=== PATIENT | male | born 1950 | race Caucasian/White ===

== ENCOUNTER 2018-04-29 03:38 | Inpatient (IN) | payer OTHER, MEDICARE ==
[~2018-04-29] VITALS: Ht 162.6 cm; Wt 76.2 kg
[~2018-04-29 03:38] MED LIST: METOPROLOL TART25 M1 PO; ST. JOSEPH ASPI81 MG PO
--- NOTE | 2018-04-29 09:58 | Admission Core Measures ---
Acute Coronary Syndrome (CM) ACS Core Measures Acute Coronary Syndrome Diagnosis No Congestive Heart Failure (NEW) CHF Core Measures Congestive Heart Failure Diagnosis No Cerebrovascular Accident CVA Core Measures CVA/TIA Diagnosis No Venous Thromboembolism VTE Core Jessica (View Protocol) VTE Risk Factors Surgery No Mechanical VTE Prophylaxis d/t N/A MechProphylax Ordered No VTE Pharm Prophylaxis d/t NA PharmProphylax ordered Problem List As ranked by this Provider includes Assessment & Plan 1. Unilateral primary osteoarthritis, left hip HOME MEDS Home Med List Aspirin ([place] Aspirin) 81 MG TAB.CHEW 1 TAB PO DAILY HEARTHEALTH ( Reported) Metoprolol Tartrate 25 MG TABLET 1 TAB PO DAILY ARRYTHMIA (Reported)
[2018-04-29] MEDS ORDERED: DILAUDID2 M1 PO (10:00)
[2018-04-29] MEDS ORDERED: INDOMETHACIN25 M1 PO (10:00)
[2018-04-29] MEDS ORDERED: MIRALAX17 G1 PO (10:00)
[2018-04-29] MEDS ORDERED: ASPIRIN EC81 M1 PO (10:00)
[2018-04-29] MEDS ORDERED: PRILOSEC OTC20 M1 PO (10:00)
[2018-04-29] MEDS ORDERED: COLACE100 M1 PO (10:00)
--- NOTE | 2018-04-29 10:02 | Patient Discharge Instructions ---
Discharge Instructions General Discharge Information You were seen/treated for: Left hip pain related to unilateral primary osteoarthritis You had these procedures: Left total hip replacement Watch for these problems: Increasing pain despite the use of pain medication Increasing redness, warmth or swelling Drainage of any type from incision Inability to bear weight on operative leg Persistent nausea and vomiting Fever greater than 101.5 degrees Do not soak the wound: Yes No bath, but you may shower: Yes Other wound care: Please keep wound clean and dry. No ointments or lotions of any type on or near incision at any time. No exceptions. Your dressing will be changed by your nurse on the second day after your surgery. Daily dry dressing changes are recommended each day thereafter. Do not soak your wound in a bath or pool at any time until otherwise indicated by your surgeon. You may shower, please dry wound immediately after shower with a clean towel. Special Instructions: Aspirin: You are taking this medication to help prevent blood clot formation. Please take with food to protect your stomach lining. Please take as directed. Constipation: Pain medication can cause constipation. Your surgeon has recommended that you take Colace and miralax each day. You may discontinue this medication if you develop loose stool or diarrhea. If you wish to continue this medication, it is available over the counter. If you are unable to move your bowels after several days, if you are unable to pass gas and are developing bloating, nausea, or vomiting as a result, please contact your doctor. Diet Continue normal diet: Yes Recommended Diet: Regular Activity Full Activity/No Limits: No Activity Self Limited: Yes Pounds, do NOT lift more than: 10 Acute Coronary Syndrome Inclusion Criteria At DC or during hospital stay patient has or had the following: ACS DIAGNOSIS No Discharge Core Measures Meds if any: Prescribed or Continued at Discharge Meds if any: NOT Prescribed or Continued at Discharge Congestive Heart Failure Inclusion Criteria At DC or during hospital stay patient has or had the following: CHF DIAGNOSIS No Discharge Core Measures Meds if any: Prescribed or Continued at Discharge Meds if any: NOT Prescribed or Continued at Discharge Cerebrovascular accident Inclusion Criteria At DC or during hospital stay patient has or had the following: CVA/TIA Diagnosis No Discharge Core Measures Meds if any: Prescribed or Continued at Discharge Meds if any: NOT Prescribed or Continued at Discharge Venous thromboembolism Inclusion Criteria VTE Diagnosis No VTE Type NONE VTE Confirmed by (Test) NONE Discharge Core Measures - Per Current guidelines, there needs to be overlap - treatment for the first 5 days of Warfarin therapy. - If discharged on Warfarin prior to 5 days of - overlap therapy, the patient will need to be - assessed for post discharge needs including - *Post discharge parental anticoagulation - *Warfarin and/or parental anticoagulation education - *Follow up date to check INR post discharge At least 5 days overlap therapy as Inpatient No Meds if any: Prescribed or Continued at Discharge Note: Overlap Therapy is Warfarin and Anticoagulant Meds if any: NOT Prescribed or Continued at Discharge
--- NOTE | 2018-04-29 10:07 | Surgical Discharge Summary ---
Visit Information Visit Dates Admission Date: 04/29/18 History of Present Illness Chief Complaint: Left hip pain related to unilateral primary osteoarthritis Surgical History Pertinent Surgical History: non-contributory Review of Systems: See h&p Hospital Course Course Attending Physician: Jonathan Armendariz MD Primary Care Physician: Dada Spicer MD Hospital Course: Patient was admitted to the hospital for an elective total joint replacement. The procedure was tolerated well and patient was transferred to a general surgical floor. Diet was advanced and tolerated. The patient was evaluated and treated by physical therapy. At the time of hospital discharge, the vital signs were stable, neurovascular status was intact, and pain was controlled with the use of oral pain medications. Allergies: Coded Allergies: No Known Allergies (04/24/18) Disposition Summary Disposition Principal Diagnosis: Left hip unilateral primary osteoarthritis Additional Diagnosis: None Discharge Disposition: home health services Discharge Instructions General Discharge Information Code Status: Full Code Patient's Diet: Regular, advance as tolerated Patient's Activity: WBAT Follow-Up Instructions/Appts: Follow up with Dr. Armendariz in 6 weeks from date of surgery. Please call office to arrange &/or confirm this appointment. Medications at Discharge Discharge Medications: Stop taking the following medications: Aspirin ([place] Aspirin) 81 MG TAB.CHEW ORAL DAILY Continue taking these medications: Metoprolol Tartrate (Metoprolol Tartrate) 25 MG TABLET 1 Tablet ORAL DAILY Start taking the following new medications: Aspirin (Ecotrin*) 81 MG TABLET.DR 1 Tablet ORAL TWICE DAILY Qty = 60 No Refills Docusate Sodium (Colace) 100 MG CAPSULE 1 Capsule ORAL TWICE DAILY Qty = 14 No Refills Instructions: DISCONTINUE USE IF YOU DEVELOP LOOSE STOOL OR DIARRHEA Hydromorphone HCl (Dilaudid) 2 MG TABLET 1-2 Tablet ORAL EVERY 4-6 HOURS NEEDED as needed for PAIN Qty = 36 No Refills Indomethacin (Indomethacin) 25 MG CAPSULE 1 Capsule ORAL THREE TIMES DAILY Qty = 30 No Refills Instructions: with food Polyethylene Glycol 3350 (Miralax) 17 GRAM POWD.PACK 1 Packet ORAL DAILY Qty = 7 No Refills Instructions: dissolve in water, DISCONTINUE USE IF YOU DEVELOP LOOSE STOOL OR DIARRHEA Omeprazole Magnesium (Prilosec Otc) 20 MG TABLET.DR 2 Tablet ORAL DAILY Qty = 60 No Refills
--- NOTE | 2018-04-29 11:52 | RADIOLOGY REPORT ---
EXAMINATION: XR HIP, LEFT CLINICAL INFORMATION: Left hip replacement COMPARISON: None TECHNIQUE: Two views of the left hip. FINDINGS: The femoral head prosthesis is well centered within the acetabular cup. The acetabular cup is suboptimally visualized on the crosstable lateral view. The acetabular cup has an estimated lateral version of 45 degrees and anteversion of approximately 25 degrees. The tip of the femoral prosthesis is well-positioned in the medullary cavity of the proximal femoral diaphysis. The tip of the prosthesis is excluded from the [id number] on the crosstable lateral radiograph. No evidence of periprosthetic fracture. IMPRESSION: Satisfactory position and alignment of components of the left total hip arthroplasty.
[2018-04-29 14:25] VITALS: BP 132/80
--- NOTE | 2018-04-29 15:22 | PN- Orthopedic ---
Subjective Subjective: Post op check: Patient complaining of dizziness and nausea, no emesis. Denies chest pain and shortness of breath. Has yet to ambulate. Has yet to void. Does not feel pain in left hip. Does not want to go home today. Objective Vital Signs and I&Os Intake & Output 04/29 1600 04/29 0800 04/29 0000 04/28 1600 04/28 0800 04/28 0000 Intake Total Output Total Balance Patient 168 lb Weight HR 64 RR 18 o2 98% room air BP 132/80 Physical Exam: General: Alert and oriented x3, no acute distress Cardiac: RRR, s1s2 Pulm: C T A bialterally, non-labored respiratory effort Abd: Nontender, nondistended Ext: Moves all extremities, distal sensation intact. Skin warm and well perfused. Bilateral calves soft and non-tender. Surgical site: Left hip: Dressing dry and intact. Thigh compartment soft. No rotational deformity to left lower extremity. Assessment/Plan Assessment/Plan This is a 67 year old male with a pmh sig for cad. Is pod 1, s/p L THR. Post op dizziness and nausea yet to resolve. IV inadvertantly out, needs to be restarted. -Restart iv now, continue iv fluids -Continue home meds. Verified home metoprolol dose with patient, patient states that he takes 25mg once daily in am. -Abx ppx: Cefazolin 2g q8 hours x2 additional doses -DVT ppx: asa 81 mg bid (30 days), indocin 25 mg tid (10 days), ALPS, TEDS -Activity: OOB, wbat -Diet: Regular, advance as tolerated -Bowel regimen: Colace and miralax -Dispo planning. Likely home with [facility] POD 1 Will discuss plan of care with Dr. Armendariz Core Measures Venous Thromboembolism VTE Risk Factors Surgery No Mechanical VTE Prophylaxis d/t N/A MechProphylax Ordered No VTE Pharm Prophylaxis d/t NA PharmProphylax ordered
--- NOTE | 2018-04-29 15:44 | Operative Report ---
Operative/Inv Procedure Report Surgery Date: 04/29/18 Name of Procedure: Left total hip replacement Pre-Operative Diagnosis: Primary left hip DJD Post-Operative Diagnosis: Same Estimated Blood Loss: 250 Surgeon/Farmworker Cranberry: Marcello PIZANO,Jonathan Dee Anesthesia: block Operative/Procedure Note Note: Description of Procedure: The patient was taken to the operating room and positively identified. After induction of spinal anesthesia and administration of appropriate pre-operative antibiotics, the patient was positioned supine on the operating room table and all bony prominences were well padded. After performing a surgical timeout, the left lower extremity was prepped and draped in the usual sterile fashion. A direct anterior approach was made to the left hip. The incision was carried sharply through superficial soft tissues to the level of the fascia. Meticulous hemostasis was maintained with Bovie electocautery. The fascia over the tensor fascia reina muscle was opened sharply and the interval between the TFL and the sartorius was entered bluntly taking care to stay lateral to the lateral femoral cutaneous nerve. Retractors were placed around the femoral neck and the pericapsular fat was identified. The ascending branches of the lateral femoral circumflex vessels were identified and carefully coagulated. The pericapsular fat and anterior capsule were then resected. A napkin ring osteotomy was performed and the femoral head was removed without difficulty. Attention was then turned to the acetabulum. After appropriate placement of retractors, the acetabulum was exposed. Soft tissue was cleaned from the acetabular margin and notch. Overhanging osteophytes were removed and the teardrop was exposed. The acetabulum was then sequentially reamed to accept a 56 mm Tyler Tritanium hemispherical solid shell. This was impacted into place in the appropriate position and fitted with a 36 mm Trident X3 zero degree polyethylene insert. Attention was then turned to the femur. After performing the appropriate ligament releases, the proximal femur was exposed. It was then sequentially broached to accept a size 5 Renata Anato neutral 130 neck angle stem. This was trialed for leg length and stability. The trial component was removed and the final component was impacted into place. The trunnion was carefully cleaned and fit with a 36 mm, +0 Biolox delta ceramic femoral head. The hip was reduced and put through a full range of motion and found to be stable. The articular space was then irrigated with sterile saline. The periarticular soft tissues were infilitrated with Marcaine. The fascial layer was closed with interrupted #1 vicryl suture and the skin was re-approximated with interrupted 2 -0 vicryl. The skin was closed with a running 3-0 V-Lock suture. Steri-strips and a sterile dressing were applied. The patient was awakened and taken to the recovery room in satisfactory condition.
[2018-04-29 16:43] VITALS: BP 122/80
[2018-04-29 18:44] VITALS: BP 138/82
[2018-04-29 20:30] VITALS: BP 126/80
[2018-04-30 00:30] VITALS: BP 98/74
[2018-04-30 04:14] VITALS: BP 112/74
--- NOTE | 2018-04-30 07:34 | PN- Orthopedic ---
Subjective Subjective: Pain to left hip and anterior thigh is moderate to severe when he attempts to ambulate or lift the leg. Mild pain while in bed. No acute events overnight, no other complaints, no fever or flulike illness. Objective Vital Signs and I&Os Vital Signs Date Time Temp Pulse Resp B/P B/P Pulse O2 O2 Flow FiO2 Mean Ox Delivery Rate 04/30 0414 98.0 74 20 112/74 95 Room Air 04/30 0030 98.0 79 20 98/74 95 Room Air 04/30 0000 Room Air 04/29 2030 98.3 84 20 126/80 95 Room Air 04/29 1844 96.8 72 20 138/82 95 Room Air 04/29 1643 97.4 69 20 122/80 93 Room Air 04/29 1518 93.7 04/29 1425 91.3 64 18 132/80 98 Room Air Intake & Output 04/30 0800 04/30 0000 04/29 1600 04/29 0800 04/29 0000 04/28 1600 Intake Total 1200 980 Output Total 1200 500 Balance 0 480 Intake, IV 600 500 Intake, Oral 600 480 Output, Urine 1200 500 Patient 168 lb 168 lb Weight Physical Exam: Well-developed well-nourished no apparent distress. HEENT: Atraumatic, extraocular motion intact Neck: Supple, no lymphadenopathy Respiratory: No respiratory distress Extremities: No edema Left lower extremity hip dressing in place, Dressing clean dry and intact moderate thigh swelling No signs of infection. No shortening or rotation Hip range of motion is limited and without unexpected pain Neurovascularly intact distally Bilateral calves are supple, nontender. Neuro: Alert and oriented x3 Psych: Mood affect normal, normal memory normal judgment. Skin: Warm and dry, no rash on exposed skin Assessment/Plan Assessment/Plan Postop day #1 status post left total hip arthroplasty anterior approach Perioperative antibiotics. Pain medication as needed. Out of bed Physical therapy, weightbearing as tolerated DC IV fluids Regular diet Follow a.m. labs Aspirin for DVT prophylaxis Indomethacin to prevent heterotopic ossification ALPS for DVT prophylaxis Regular home meds Dressing change postop day 2 Anticipate discharge home later today or tomorrow, pain may be an issue with therapy Core Measures Venous Thromboembolism VTE Risk Factors Surgery No Mechanical VTE Prophylaxis d/t N/A MechProphylax Ordered No VTE Pharm Prophylaxis d/t NA PharmProphylax ordered
[2018-04-30 09:07] VITALS: BP 100/60
[2018-04-30 11:38] LABS: ABSOLUTE BASOPHIL COUNT 0 /CUMM (0.0-0.2); ABSOLUTE EOSINOPHIL COUNT 0.1 /CUMM (0.0-0.7); ABSOLUTE GRANULOCYTE CT 8.1 /CUMM (1.4-6.5); ABSOLUTE LYMPH COUNT 1.1 /CUMM (1.2-3.4); ABSOLUTE MONOCYTE COUNT 1.1 /CUMM (0.10-0.60); BASOPHIL % 0.2 % (0.0-2.0); EOSINOPHIL % 1.4 % (0-5); GRANULOCYTE % 77.1 % (42.2-75.2); HEMATOCRIT 38.7 % (42-52); MEAN CORPUSCULAR HGB 29.4 PG (27.0-31.0); MEAN CORPUSCULAR HGB CONC 33.7 G/DL (33.0-37.0); MEAN CORPUSCULAR VOLUME 87.3 FL (80.0-94.0); MEAN PLATELET VOLUME 10.5 FL (7.4-10.4); PLATELET COUNT 184 /CUMM (130-400); RBC DISTRIBUTION WIDTH 14.7 % (11.5-14.5); RED BLOOD CELL CT 4.44 /CUMM (4.70-6.10); WHITE BLOOD CELL COUNT 10.5 /CUMM (4.8-10.8)
[2018-04-30] MEDS ORDERED: OXYCODONE HCL5 M1 PO (12:06)
== END 2018-04-30 13:39 | disposition home health service (06) | DRG 470 ==
LOC: SDA 03:38 → ENRESERV 13:04 → ENTRNSPT 13:58 → EDTRNSPTSTS 14:02 → EDTRNSPT 14:02 → 2NA 14:10 → CMPTRNSPT 14:18 → ENPENDDIS 04-30 12:15 → ENTRNSPT 04-30 13:08 → 2NA 04-30 13:39 → CMPTRNSPT 04-30 14:13
PROVIDERS: Nurse Practitioner
PROC: 0SRB04A Replacement of Left Hip Joint with Ceramic on Polyethylene Synthetic Substitute, Uncemented, Open Approach (ICD-10-PCS; principal; 2018-04-29)
DX: M16.12 Unilateral primary osteoarthritis, left hip (principal); I48.0 Paroxysmal atrial fibrillation; N40.0 Benign prostatic hyperplasia without lower urinary tract symptoms; I35.0 Nonrheumatic aortic (valve) stenosis; Z95.2 Presence of prosthetic heart valve
CPT/HCPCS: 2NAP; 36592; 73502-LT; 82436; 97116-GO; 97161-GP; 97530-GO; J0131; J0690; J0735; J2405; J2550; J7042